=== PATIENT | female | born 1970 | race Two or more races ===

== ENCOUNTER 2024-11-29 04:45 | Emergency (ER) | payer MEDICARE, MEDICAID, SELFPAY ==
[2024-11-29 04:46] VITALS: BMI 25.2
[2024-11-29 04:50] VITALS: BP 135/81; PULSE 68; RESP 18; TEMP 36.9; O2SAT 96
--- NOTE | 2024-11-29 05:13 | XR_ITS ---
Examination: PA chest single view TECHNIQUE: Upright PA chest single view Date and time: 531, 2024, 0516 hours Indications: Chest pain beginning last night FINDINGS: Normal heart size. The lungs are clear. Mild osteopenia. IMPRESSION: No active disease.
--- NOTE | 2024-11-29 05:14 | PD.EDRME ---
Rapid Medical Screening Exam [facility] Arrival date/time: 11/29/24 04:45 54F with history of HTN, stomach ulcers and chronic joint pain (on several muscle relaxers and gabapentin) presents to ED with 1 day of CP that radiates to jaw and down arm. There is also some SOB. Patient states this doesn't feel like her gastritis, but feels more muscular-related. Chief Complaint: Chest Pain Vital signs: Vital Signs Temperature 98.5 F 11/29/24 04:50 Pulse Rate 68 11/29/24 04:50 Respiratory Rate 18 11/29/24 04:50 Blood Pressure 135/81 H 11/29/24 04:50 Pulse Oximetry (%) 96 11/29/24 04:50 Oxygen Delivery Method Room Air 11/29/24 04:50
[2024-11-29 06:13] LABS: Basophils # (Auto) 0.1 Thou/mm3 (0.0-0.2); Basophils % (Auto) 1 % (0-2.5); Eosinophils # (Auto) 0.2 Thou/mm3 (0.0-0.5); Eosinophils % (Auto) 2 % (0-10); Hematocrit 43.9 % (36.0-46.0); Hemoglobin 15.0 g/dL (12.0-16.0); Immature Granulocytes Auto 0.02 Thou/mm3 (0.00-0.00); Lymphocytes # (Auto) 2.1 Thou/mm3 (1.0-4.8); Lymphocytes % (Auto) 32 % (10-50); Mean Corpuscular HGB Conc 34.2 g/dl (31.0-37.0); Mean Corpuscular Hemoglobin 31.2 pg (25.0-35.0); Mean Corpuscular Volume 91 fL (80-100); Monocytes # (Auto) 0.4 Thou/mm3 (0.0-0.8); Monocytes % (Auto) 6 % (0-12); Neutrophils # (Auto) 3.9 Thou/mm3 (1.8-7.7); Neutrophils % (Auto) 59 % (37-80); Nucleated Red Blood Cell # 0.00 Thou/mm3 (0.00-0.00); Nucleated Red Blood Cell % 0 /100 WBC (0); Platelet Count 155 Thou/mm3 (140-440); RDW Standard Deviation 42.4 fL (36.4-46.3); Red Blood Count 4.81 Miln/mm3 (4.00-5.20); White Blood Count 6.6 Thou/mm3 (3.6-11.0)
[2024-11-29 06:25] LABS: Alanine Aminotransferase 38 U/L (10-49); Albumin, Serum 4.3 gm/dL (3.5-5.0); Albumin/Globulin Ratio 1.6 (1.2-2.2); Alkaline Phosphatase 114 U/L (46-116); Anion Gap 9 (7-16); Aspartate Amino Transferase 28 U/L (0-34); BUN/Creatinine Ratio 7 Ratio (12-20); Bilirubin,Total 0.9 mg/dL (0.3-1.2); Blood Urea Nitrogen 7 mg/dL (9-23); Calcium 9.5 mg/dL (8.3-10.6); Calcium (Corrected) 9.5 mg/dL (8.5-10.1); Carbon Dioxide 26.5 mMol/L (20.0-31.0); Chloride 108 mMol/L (98-107); Creatinine (Component) 1.0 mg/dL (0.6-1.3); Estimated Creatinine Clearance 61.3 mL/min (>60); Globulin 2.7 gm/dL (2.3-3.5); Glucose 139 mg/dL (74-106); Osmolality,Calculated 284 (275-295); Potassium 3.8 mMol/L (3.4-5.1); Sodium 143 mMol/L (136-145); Total Protein 7.0 gm/dL (5.7-8.2); Troponin I < 0.002 ng/mL (0.0-0.045); eGFR > 60 See Note
[2024-11-29 07:41] VITALS: BP 159/86; PULSE 59; RESP 18; O2SAT 99
--- NOTE | 2024-11-29 08:01 | PD.EDCHEST ---
ED Chest Pain RME/HPI General Chief Complaint: Chest Pain Stated Complaint: CHEST PAIN X 2000 Time Seen by Provider: 11/29/24 07:57 Arrival date/time: 11/29/24 04:45 Limitations: no limitations RME / HPI RME / HPI narrative: 11/29/24 04:45 54F with history of HTN, stomach ulcers and chronic joint pain (on several muscle relaxers and gabapentin) presents to ED with 1 day of CP that radiates to jaw and down arm. There is also some SOB. Patient states this doesn't feel like her gastritis, but feels more muscular-related. DR. BAH MAIN ED EVALUATION: 54 year old female with history of hypertension, diabetes, PUD on Omeprazole, fatty liver, status post anterior cervical C4-C6 fusion presents to the ED for evaluation of left sided chest pain beginning at 8PM last night and remaining constant since. Described as a tense aching pain that radiates from the left upper chest to the left side of neck and left shoulder area. Rating as moderate that is aggravated with movements. Denies cough or shortness of breath. Denies fevers, chills, abdominal pain, nausea, vomiting. Related Data Allergies Allergy/AdvReac Type Severity Reaction Status Date / Time egg Allergy Mild Nausea Verified 11/29/24 04:48 Review of Systems Review of Systems Systems Reviewed: All systems reviewed, normal except as documented Past Medical History Past Medical History NEUROLOGIC: Positive Brain Tumor (PITUITARY GLAND TUMORE REMOVED) CARDIAC: Positive Cardiac Disorders, Angina and Hypertension GASTROINTESTINAL: Positive Gastrointestinal Disorders (FATTY LIVER) MUSCULOSKELETAL: Positive Musculoskeletal Disorders (POSTERIOR NECK DISC REPLACEMENTS) and Carpal Tunnel Syndrome ENDOCRINE: Positive Diabetes Mellitus Type 2 Surgical History SURGICAL: Positive Vascular Surgery and Section Social History SMOKING STATUS: Never smoker ED Exam General Limitations: Present no limitations General appearance: Present alert and in no apparent distress Head Head exam: Present atraumatic Eye Eye exam: Present normal appearance, PERRL and EOMI ENT ENT exam: Present normal exam, normal oropharynx and mucous membranes moist Neck Neck exam: Present full ROM, trachea midline and other (trigger point left lateral neck tenderness and when I press the trigger point it duplicates the pain in the shoulder area ) Chest Chest inspection: Present normal inspection and symmetric chest wall rise Respiratory Respiratory exam: Present normal lung sounds bilaterally Cardiovascular Cardiovascular exam: Present regular rate, normal rhythm and normal heart sounds Abdominal Exam Abdominal exam: Present soft and normal bowel sounds Extremities Exam Extremities exam: Present normal inspection and full ROM Back Exam Back exam: Present normal inspection and full ROM Neurological Exam Neurological exam: Present alert, oriented X3 and CN II-XII intact Psychiatric Psychiatric exam: Present normal affect and normal mood Skin Skin exam: Present warm, dry, intact and normal color Course Course Course Narrative: chest xray ordered to help determine etiology of chest pain. Quality Measures none Orders Category Date Time Status EKG (ED ONLY) *Do not use* NOW Care 11/29/24 04:50 Completed EKG (ED Only) Stat Exams 11/29/24 04:49 Ordered XR chest 1V portable Stat Exams 11/29/24 05:13 Completed CBC Stat Lab 11/29/24 05:55 Completed Comprehensive Metabolic Panel Stat Lab 11/29/24 05:55 Completed Troponin I Stat Lab 11/29/24 05:55 Completed Aspirin Med 11/29/24 05:13 Discontinued 325 mg PO X1 ONE Ketorolac Inj [Toradol Inj] Med 11/29/24 08:26 Discontinued 30 mg IM X1 ONE Vital Signs Vital signs: Vital Signs Temperature 98.5 F 11/29/24 04:50 Pulse Rate 68 11/29/24 04:50 Respiratory Rate 18 11/29/24 04:50 Blood Pressure 135/81 H 11/29/24 04:50 Pulse Oximetry (%) 96 11/29/24 04:50 Oxygen Delivery Method Room Air 11/29/24 04:50 Pulse ox is 96% on room air which is adequate. Chest Pain MDM Narrative MDM Narrative:: IMarcy am scribing for and in the presence of Dr. Bah. 54 year old female with history of hypertension, diabetes, PUD on Omeprazole, fatty liver, status post anterior cervical C4-C6 fusion presents to the ED for evaluation of left sided chest pain beginning at 8PM last night and remaining constant since. Described as a tense aching pain that radiates from the left upper chest to the left side of neck and left shoulder area. On examination, the patient has trigger point left lateral neck tenderness and when I press the trigger point it duplicates the pain in the shoulder area. Labs today including troponin are unremarkable. Chest xray was negative for acute findings. EKG today is sinus rhythm, rate 66, no acute ischemic changes. Pain today is most consistent with musculoskeletal pain. While in the ED she was given Aspirin 325mg and Toradol with improvement. Patient remains clinically stable throughout the emergency department visit. We reviewed all the results, analysis, and treatment plans. Patient is amenable to discharge. Strict return precautions were outlined. Patient was discharged in stable condition. Patient data External records reviewed:: None (No previous ED visits for review ) Clinical information provided by:: patient Social determinants that could affect healthcare access:: none Patient has the following chronic illnesses:: hypertension, diabetes, PUD on Omeprazole, fatty liver, status post anterior cervical C4-C6 fusion How is presenting disease/condition affected by chronic disease/condition?: exacerbated by Evaluation data The following diagnostics were reviewed and interpreted by me:: lab results and EKG tracing(s) (11/29/2024 @ 04:42 AM. Sinus rhythm, rate 66, normal axis, normal intervals, no acute ischemic changes, no STEMI. ) Lab and/or radiology exams considered but not ordered:: None Interpretation Summary: Ordering Physician: Laureano Narayanan PA-C Date of Service: 11/29/24 Procedure(s): XR chest 1V portable Accession Number(s): [id number] cc: Robert Adan MD; Laureano Narayanan PA-C~ Examination: PA chest single view TECHNIQUE: Upright PA chest single view Date and time: 53, 2024, 0516 hours Indications: Chest pain beginning last night FINDINGS: Normal heart size. The lungs are clear. Mild osteopenia. IMPRESSION: No active disease. Dictated By: Robert Adan MD Signed By: <Electronically signed by Robert Adan MD in OV> 11/29/24 0659 Medications / Prescriptions Medications or Prescriptions considered but not ordered:: none Medication administrations:: Medication Administration History Discontinued Medications Aspirin (Aspirin 325 Mg Tablet) 325 mg PO X1 ONE Stop: 11/29/24 05:14 Last Admin: 11/29/24 05:28 Dose: 325 mg Documented By: DARIEN Ketorolac Tromethamine (Ketorolac Inj 30 Mg/Ml Vial) 30 mg IM X1 ONE Stop: 11/29/24 08:27 Last Admin: 11/29/24 08:36 Dose: 30 mg Documented By: VL See above Consultations Consultation(s) initiated? (list below): No Diagnosis Most likely diagnosis given after review of the tests above:: Musculoskeletal pain Admission Indicated Admission indicated?: not indicated Admission Request Was there a request for admission?: No Disposition Plan Disposition Plan: Discharge Discharge Attestation Discharge Attestation: The patient and all family members were given an opportunity to ask questions and understood the discharge instructions. Discharge instructions specifically effects, indications for sooner follow up or return to the emergency department, and the expected course of current diagnosis. Patient condition: Stable Discharge Plan Plan Patient Disposition: HOME (Self Care) Prescriptions/Referrals Referrals: Aashish Burdick MD [Primary Care Provider] - In 1 week Problem List Clinical Impression: Musculoskeletal pain Patient/Caregiver Discharge Instructions Education Materials: ED Myalgias Additional Instructions: Follow-up with your primary care doctor in tomorrow for stress test. You can return to the emergency department sooner if symptoms worsen or if you notice any new, concerning issues. For pain, take both 1-2 Tylenol 500mg tablets every 6 hours AND 2 Advil Gel 200mg capsules every 6 hours. Print Language: Hebrew Stand Alone Forms: [facility]issa Award Info., Patient Portal Info Letter
[2024-11-29] MEDS: KETOROLAC INJ 30 MG/ML VIAL IM (08:36)
[2024-11-29 08:58] VITALS: BP 141/74; PULSE 60; RESP 18; TEMP 36.6; O2SAT 97
== END 2024-11-29 08:59 | disposition home or self-care (01) ==
PROVIDERS: Physician Assistant; Emergency Provider Family Medicine; PCP Family Medicine
DX: M79.18 Myalgia, other site (principal); R07.89 Other chest pain; I10 Essential (primary) hypertension
CPT/HCPCS: 36415; 71045; 80053; 84484; 85025; 93005; 96372; 99283; J1885; A9270

== ENCOUNTER 2024-12-10 18:30 | Emergency (ER) | payer MEDICARE, MEDICAID, SELFPAY ==
[2024-12-10 18:49] VITALS: BP 161/85; PULSE 70; RESP 18; TEMP 36.6; O2SAT 98
--- NOTE | 2024-12-10 19:47 | PD.EDDIZZY ---
ED Dizzyness RME/HPI General Chief Complaint: Dizziness Stated Complaint: Dizzy, ESPINOSA, sent with labs Time Seen by Provider: 12/10/24 18:56 Arrival date/time: 12/10/24 18:30 RME / HPI RME / HPI Narrative: Dr. Beltran?s Main ED Evaluation: 54yo female with a previous pituitary tumor (2007, recurrence in 2013), seen recently for cardiac evaluation, now presenting with lightheadedness and dizziness x this AM. Associated intermittent headache and syncope. No vertigo. She does have nausea, but no vomiting. Denies fever, chills, URI, or cough. PMH includes DM and HTN. PSH includes craniotomy. Related Data Previous Rx's ?Medication ?Instructions ?Recorded cefuroxime axetil 250 mg tablet 250 mg PO BID 7 days #14 tabs 12/10/24 Allergies Allergy/AdvReac Type Severity Reaction Status Date / Time egg Allergy Mild Nausea Verified 12/10/24 18:36 Review of Systems Review of Systems Systems Reviewed: All systems reviewed, normal except as documented Past Medical History Past Medical History NEUROLOGIC: Positive Brain Tumor (PITUITARY GLAND TUMORE REMOVED) CARDIAC: Positive Cardiac Disorders, Angina and Hypertension; Negative Congestive Heart Failure RESPIRATORY: Negative Chronic Obstructive Pulmonary Disease (COPD) GASTROINTESTINAL: Positive Gastrointestinal Disorders (FATTY LIVER) GENITOURINARY: Negative Renal Disease MUSCULOSKELETAL: Positive Musculoskeletal Disorders (POSTERIOR NECK DISC REPLACEMENTS) and Carpal Tunnel Syndrome ENDOCRINE: Positive Diabetes Mellitus Type 2; Negative Diabetes Mellitus Type 1 Surgical History SURGICAL: Positive Vascular Surgery and Section Social History SMOKING STATUS: Never smoker ED Exam Narrative Physical exam: GENERAL APPEARANCE: alert and oriented x 4, well-developed, well-nourished, nontoxic, no acute distress VITALS: All vitals were reviewed and the pulse ox is 98% on room air, which is normal according to my interpretation. HEENT: Normocephalic, atraumatic; pupils equal, round, reactive to light; EOMI; no nystagmus; mucous membranes pink, moist; oropharynx clear NECK: Supple LUNGS: CTABL; no wheezes, no rales, no rhonchi HEART: Regular rate, regular rhythm; normal S1, S2; no murmurs ABDOMEN: non distended; normal BS; soft, no tenderness, no guarding, no rebound; no masses, no organomegaly, no hernia BACK: no CVA tenderness EXTREMITIES: atraumatic; no edema NEUROLOGIC: awake; alert and oriented x4; cranial nerves II-XII grossly intact; no focal sensory or motor deficits; normal [id number], normal gait PSYCHIATRIC: appropriate mood and affect SKIN: warm, dry, normal color; no rashes Course Quality Measures none Orders Category Date Time Status Shuttle Filler STAT Care 12/10/24 20:06 Completed EKG (ED ONLY) *Do not use* NOW Care 12/10/24 20:06 Completed Orthostatic Vitals NOW Care 12/10/24 20:[address] head/brain wo con Stat Exams 12/10/24 20:07 Completed EKG (ED Only) Stat Exams 12/10/24 20:06 Draft CBC Stat Lab 12/10/24 20:34 Completed Comprehensive Metabolic Panel Stat Lab 12/10/24 20:34 Completed Troponin I Stat Lab 12/10/24 20:34 Completed Urinalysis Stat Lab 12/10/24 21:16 Completed Sodium Chloride 0.9% 500 ml [Ns] 500 ml Med 12/10/24 20:06 Discontinued IV 999 mls/hr cefTRIAXone [Rocephin] 0 mg Med 12/10/24 22:01 Discontinued Sterile Water 3.6 ml IM X1 cefTRIAXone [Rocephin] 1,000 mg Med 12/10/24 22:01 Discontinued Sterile Water 3.6 ml IM X1 Vital Signs Vital signs: Vital Signs Temperature 97.9 F 12/10/24 18:49 Pulse Rate 70 12/10/24 18:49 Respiratory Rate 18 12/10/24 18:49 Blood Pressure 161/85 H 12/10/24 18:49 Pulse Oximetry (%) 98 12/10/24 18:49 Oxygen Delivery Method Room Air 12/10/24 18:49 Dizziness MDM Narrative MDM Narrative:: Scribe Attestation: 12/10/24 - Sandi Nathan am scribing for and in the presence of Dr. Belrtan. 54yo female with a previous pituitary tumor (2007, recurrence in 2013), seen recently for cardiac evaluation, now presenting with lightheadedness and dizziness x this AM. Associated intermittent headache and syncope. Please see PE findings. Laboratory markers demonstrate normal CBC, mildly elevated transaminases and alkaline phosphatase just above baseline, troponin undetected, UA with evidence of infection. CT brain without evidence of obvious reoccurrence of pituitary mass, MRI suggested for follow-up for microadenoma. Patient remains neurologically intact and is stable for discharge. Will treat with empiric antibiotics here and send a prescription to her pharmacy. Recommend force fluids, adequate bed rest, and close follow-up with her PMD for outpatient MRI. Patient data External records reviewed:: [facility] previous records (Per chart review, patient was seen here on 11/29/24 for MSK pain.) Clinical information provided by:: patient Social determinants that could affect healthcare access:: none Patient has the following chronic illnesses:: DM, HTN How is presenting disease/condition affected by chronic disease/condition?: exacerbated by Evaluation data The following diagnostics were reviewed and interpreted by me:: lab results, radiology exam(s) and EKG tracing(s) Lab and/or radiology exams considered but not ordered:: none Interpretation Summary: EKG done at 1722, NSR, rate of 63, no acute pathological ST segment changes, no ectopy, normal intervals, left axis deviatio, according to my interpretation. [facility] Report Signed Patient: DEBBY SEGUNDO. Record#: [id number] Birthdate: 1970 Age/Sex: 54 / F Location: [facility] Attending Dr: Ordering Physician: Alli Kiran DO Date of Service: 12/10/24 Procedure(s): CT head/brain wo con Accession Number(s): [id number] cc: Alli Kiran DO; Brandie Winter [employer]ING MANAGER-C; Robert Adan MD~ Examination: CT brain head without contrast. 2-D sagittal coronal reconstructions Date and time of exam:December 10, 2024, 2020 hours INDICATIONS: Headache dizziness beginning 3 days ago, known pituitary tumor CTDI: vol (mGy):44.6 DLP: (mGycm):855 Technique: Multiple CT axial sections of the brain have been obtained, 5 mm slice thickness. Contrast has not been administered. 2-D sagittal, coronal reconstructions have been obtained Low dose protocols were performed. One or more of the following dose reduction techniques were used; automated exposure control, adjustment of the mA and/or KV according to patient size, use of iterative reconstruction technique. Findings: No significant ventricular enlargement. Intra-axial or extra-axial hemorrhage density is not seen. No mass effect or midline shift Basal cisterns are not remarkable. Fourth ventricle is midline. Cranial vault intact. Impression: Negative for acute hemorrhage, mass effect or midline shift No pituitary macroadenoma Brain MRI follow-up, pre and postcontrast, would best assess for pituitary microadenoma Dictated By: Robert Adan MD Signed By: <Electronically signed by Robert Adan MD in OV> 12/10/24 2113 Medications / Prescriptions Medications or Prescriptions considered but not ordered:: none Medication administrations:: Medication Administration History Discontinued Medications Ceftriaxone Sodium / Sterile (Water 3.6 ml) 0 mg IM X1 ONE Stop: 12/10/24 22:02 Last Admin: 12/10/24 22:09 Dose: Not Given Documented By: MIO Non-Admin Reason: Cancelled by Provider Ceftriaxone Sodium 1,000 mg/ (Sterile Water 3.6 ml) 0 mg IM X1 ONE Stop: 12/10/24 22:02 Last Admin: 12/10/24 22:36 Dose: 1,000 vial Documented By: ALF Sodium Chloride (Ns) 500 mls @ 999 mls/hr IV .Q31M ONE Stop: 12/10/24 20:36 Last Admin: 12/10/24 22:08 Dose: Not Given Documented By: MIO Non-Admin Reason: Cancelled by Provider see above Consultations Consultation(s) initiated? (list below): No Diagnosis Dizziness Differential Diagnosis: benign paroxysmal positional vertigo, orthostatic hypotension, cerebrovascular accident and other (UTI, dehydration) Most likely diagnosis given after review of the tests above:: UTI Admission Indicated Admission indicated?: not indicated Admission Request Was there a request for admission?: No Disposition Plan Disposition Plan: Discharge Discharge Attestation Discharge Attestation: The patient and all family members were given an opportunity to ask questions and understood the discharge instructions. Discharge instructions specifically effects, indications for sooner follow up or return to the emergency department, and the expected course of current diagnosis. Patient condition: Stable Discharge Plan Plan Patient Disposition: HOME (Self Care) Discharge Disposition comment: Stable Prescriptions/Referrals Prescriptions/Med Rec: New cefuroxime axetil 250 mg tablet 250 mg PO BID 7 Days Qty: 14 0RF Referrals: Brandie Winter FNP-C [Primary Care Provider] - In 1 week Problem List Clinical Impression: UTI (urinary tract infection) Patient/Caregiver Discharge Instructions Discharge Activity: activity as tolerated Education Materials: Urinary Tract Infections in Women Additional Instructions: Force fluids/maintain adequate bed rest. Medication as directed. Follow-up with primary care doctor for repeat urinalysis and follow-up on culture in 5 to 7 days. Print Language: Russian Stand Alone Forms: Carissa Award Info., Patient Portal Info Letter
--- NOTE | 2024-12-10 20:06 | EKG_ITS ---
[facility] Test Date: 2024-12-10 Pat Name: DEBBY SEGUNDO Department: Room: - Gender: Female [employer]: : 1970 Requested By: Alli Nettles Order Number: [id number] Reading MD: Alli Nettles Measurements Intervals [place] Rate: 65 P: 32 NM: 143 QRS: 55 QRSD: 90 T: 30 QT: 374 QTc: 391 Interpretive Statements SINUS RHYTHM No previous ECG available for comparison /store/S0/[id number]/ecg/[id number].pdf
--- NOTE | 2024-12-10 20:07 | XR_ITS ---
Examination: CT brain head without contrast. 2-D sagittal coronal reconstructions Date and time of exam:December 10, 2024, 2020 hours INDICATIONS: Headache dizziness beginning 3 days ago, known pituitary tumor CTDI: vol (mGy):44.6 DLP: (mGycm):855 Technique: Multiple CT axial sections of the brain have been obtained, 5 mm slice thickness. Contrast has not been administered. 2-D sagittal, coronal reconstructions have been obtained Low dose protocols were performed. One or more of the following dose reduction techniques were used; automated exposure control, adjustment of the mA and/or KV according to patient size, use of iterative reconstruction technique. Findings: No significant ventricular enlargement. Intra-axial or extra-axial hemorrhage density is not seen. No mass effect or midline shift Basal cisterns are not remarkable. Fourth ventricle is midline. Cranial vault intact. Impression: Negative for acute hemorrhage, mass effect or midline shift No pituitary macroadenoma Brain MRI follow-up, pre and postcontrast, would best assess for pituitary microadenoma
[2024-12-10 20:42] LABS: Basophils # (Auto) 0.1 Thou/mm3 (0.0-0.2); Basophils % (Auto) 1 % (0-2.5); Eosinophils # (Auto) 0.2 Thou/mm3 (0.0-0.5); Eosinophils % (Auto) 2 % (0-10); Hematocrit 43.9 % (36.0-46.0); Hemoglobin 15.1 g/dL (12.0-16.0); Immature Granulocytes Auto 0.02 Thou/mm3 (0.00-0.00); Lymphocytes # (Auto) 2.7 Thou/mm3 (1.0-4.8); Lymphocytes % (Auto) 38 % (10-50); Mean Corpuscular HGB Conc 34.4 g/dl (31.0-37.0); Mean Corpuscular Hemoglobin 31.5 pg (25.0-35.0); Mean Corpuscular Volume 92 fL (80-100); Monocytes # (Auto) 0.4 Thou/mm3 (0.0-0.8); Monocytes % (Auto) 6 % (0-12); Neutrophils # (Auto) 3.7 Thou/mm3 (1.8-7.7); Neutrophils % (Auto) 53 % (37-80); Nucleated Red Blood Cell # 0.00 Thou/mm3 (0.00-0.00); Nucleated Red Blood Cell % 0 /100 WBC (0); Platelet Count 151 Thou/mm3 (140-440); RDW Standard Deviation 41.8 fL (36.4-46.3); Red Blood Count 4.80 Miln/mm3 (4.00-5.20); White Blood Count 7.0 Thou/mm3 (3.6-11.0)
[2024-12-10 21:00] LABS: Alanine Aminotransferase 50 U/L (10-49); Albumin, Serum 4.5 gm/dL (3.5-5.0); Albumin/Globulin Ratio 1.8 (1.2-2.2); Alkaline Phosphatase 125 U/L (46-116); Anion Gap 11 (7-16); Aspartate Amino Transferase 37 U/L (0-34); BUN/Creatinine Ratio 11 Ratio (12-20); Bilirubin,Total 0.8 mg/dL (0.3-1.2); Blood Urea Nitrogen 10 mg/dL (9-23); Calcium 9.9 mg/dL (8.3-10.6); Calcium (Corrected) 9.9 mg/dL (8.5-10.1); Carbon Dioxide 27.3 mMol/L (20.0-31.0); Chloride 104 mMol/L (98-107); Creatinine (Component) 0.9 mg/dL (0.6-1.3); Globulin 2.5 gm/dL (2.3-3.5); Glucose 114 mg/dL (74-106); Osmolality,Calculated 283 (275-295); Potassium 3.7 mMol/L (3.4-5.1); Sodium 142 mMol/L (136-145); Total Protein 7.0 gm/dL (5.7-8.2); Troponin I < 0.002 ng/mL (0.0-0.045); eGFR > 60 See Note
[2024-12-10 21:24] LABS: Collection Type, Urine Clean Catch
[2024-12-10 21:36] LABS: Bacteria,Urine 2+; Bilirubin,Urine Negative (Negative); Blood,Urine Negative (Negative); Clarity,Urine Clear (Clear/Hazy); Color,Urine Lt-Yellow (Lt Yel-Yel); Glucose, Urine 4+ (Negative); Ketones,Urine Negative (Negative); Leukocyte Esterase,Urine Negative (Negative); Nitrite,Urine Negative (Negative); PH,Urine 6.5 (5.0-7.0); Protein,Urine Negative (Neg - Trace); RBC,Urine 4 /hpf (0-3); Specific Gravity,Urine 1.024 (1.001-1.035); Squamous Epithelial Cell,Urine 1 /hpf (0-5); Urobilinogen,Urine Negative mg/dL (0.0-1.0); WBC,Urine 1 /hpf (0-5)
[2024-12-10] MEDS: CEFTRIAXONE 1000 MG IM (22:36)
[2024-12-10] MEDS: [UNRECOGNIZED DRUG - OTHER] IM (22:36)
[2024-12-10 22:44] VITALS: BP 136/74; PULSE 78; RESP 19; TEMP 36.6; O2SAT 99
== END 2024-12-10 22:58 | disposition home or self-care (01) ==
PROVIDERS: Emergency Provider Emergency Medicine
DX: N39.0 Urinary tract infection, site not specified (principal); R74.01 Elevation of levels of liver transaminase levels; E11.9 Type 2 diabetes mellitus without complications; I10 Essential (primary) hypertension; Z86.39 Personal history of other endocrine, nutritional and metabolic disease; Z91.012 Allergy to eggs
CPT/HCPCS: 36415; 70450; 80053; 81001; 84484; 85025; 93005; 99283; A4216; J0696